=== PATIENT | male | born 1990 | race African-American/Black ===

== ENCOUNTER 2016-09-04 19:36 | Emergency (ER) | payer OTHER ==
[~2016-09-04] VITALS: Ht 175.3 cm; Wt 96.6 kg
[~2016-09-04 19:36] MED LIST: ALBUTEROL SULF8.5 GM IH; GENTAMICIN SULFA5 ML BOTH EYES; LORTAB 5-325 M1 EACH PO; MOTRIN600 MG PO; MOTRIN800 MG PO; NAPROSYN500 MG PO; NOHOMEMEDS; NORCO 5/3251 TABLET PO; NORCO 7.5/321 TABLET PO; PROVENTIL17 G1 IH; PYRIDIUM100 MG PO; ZITHROMAX Z-PA250 MG PO; no home meds
[2016-09-04] MEDS ORDERED: KEFLEX500 MG PO (20:44)
[2016-09-04 20:56] VITALS: BP 121/88
== END 2016-09-04 20:57 | disposition home or self-care (01) ==
LOC: EME 19:36 → RME 19:36
PROC: 0HCNXZZ Extirpation of Matter from Left Foot Skin, External Approach (ICD-10-PCS; principal; 2016-09-04)
DX: S90.852A Superficial foreign body, left foot, initial encounter (principal); W45.8XXA Other foreign body or object entering through skin, initial encounter
CPT/HCPCS: 73630; 99281; 99284; S0020

== ENCOUNTER 2016-10-11 18:58 | Emergency (ER) | payer OTHER ==
[~2016-10-11] VITALS: Ht 175.3 cm; Wt 92.2 kg
[~2016-10-11 18:58] MED LIST changes: +KEFLEX500 MG PO
[2016-10-11] MEDS ORDERED: AUGMENTIN875 MG PO (22:25)
[2016-10-11 22:40] VITALS: BP 122/75
== END 2016-10-11 22:41 | disposition home or self-care (01) ==
LOC: EME 18:58
PROC: 0CQ1XZZ Repair Lower Lip, External Approach (ICD-10-PCS; principal; 2016-10-11)
DX: S01.511A Laceration without foreign body of lip, initial encounter (principal); Y08.09XA Assault by strike by other specified type of sport equipment, initial encounter; F17.200 Nicotine dependence, unspecified, uncomplicated
CPT/HCPCS: 99281; 99284

== ENCOUNTER 2016-10-15 21:37 | Emergency (ER) | payer OTHER ==
[~2016-10-15 21:37] MED LIST changes: +AUGMENTIN875 MG PO
[2016-10-15 22:01] LABS: EOSINOPHIL (%) 2.9 % (0-5); EOSINOPHIL COUNT 0.2 K/uL (0-0.3); HEMATOCRIT 41.4 % (38.0-50.0); IMMATURE GRANULOCYTE (%) 0.2 % (0.0-0.7); INSTRUMENT ABS NEUTROPHIL CT 3.3 K/uL; LYMPHOCYTE COUNT 2.1 K/uL (1.0-2.8); MCH 30.9 PG (29.0-34.0); MCHC 34.5 G/DL (30.0-36.0); MCV 89.4 FL (86-99); MEAN PLAT.VOLUME 8.9 uM^3 (9.0-12.4); MONOCYTE (%) 9.6 % (3-12); MONOCYTE COUNT 0.6 K/uL (0-0.8); NEUTROPHIL COUNT 3.3 K/uL (1.8-6.4); PLATELET COUNT 290 K/uL (156-360); RBC DIS.WIDTH-CV 12.1 % (11.8-14.6); RBC DIS.WIDTH-SD 39.8 % (39-53); RED BLOOD COUNT 4.63 M/uL (4.00-5.50); WHITE BLOOD COUNT 6.1 K/uL (4.1-10.2)
[2016-10-15 22:12] LABS: AMYLASE 115 IU/L (1-118); CHLORIDE 104 mEq/L (99-109); POTASSIUM 3.2 mEq/L (3.7-5.4); SODIUM 140 mEq/L (136-147)
[2016-10-15 22:14] LABS: GLUCOSE 118 mg/dL (70-99)
[2016-10-15 22:15] LABS: ANION GAP 16 MEQ/L (2-14)
[2016-10-15 22:17] LABS: SERUM ETHYL ALCOHOL 173 mg/dL
[2016-10-15 22:18] LABS: GFR ESTIMATE (CALCULATED) > 59 mL/min/
[2016-10-15 22:19] LABS: UREA NITROGEN (BUN) 16 mg/dL (9-23)
[2016-10-15 22:21] LABS: LIPASE 53 U/L (1.0-51.0)
[2016-10-15 23:28] LABS: ADD MIUA? YES; BILIRUBIN NEGATIVE; BLOOD NEGATIVE; COLOR STRAW ((YELLOW)); GLUCOSE (STRIP) NEGATIVE; KETONES NEGATIVE; LEUKOCYTES NEGATIVE; NITRITE NEGATIVE; PROTEIN (STRIP) NEGATIVE; SPECIFIC GRAVITY 1.039 (1.000-1.030); UROBILINOGEN 0.2 MG/DL (0.2-1.0)
[2016-10-15 23:35] LABS: BACTERIA NONE SEEN /HPF; EPITHELIAL CELLS RARE /HPF; HYALINE CASTS 0-5 /LPF; MUCUS NONE SEEN /LPF; RED BLOOD CELLS NONE SEEN /HPF (0-5); UCUL ADDED? NO; WHITE BLOOD CELLS 0-5 /HPF (0-5)
[2016-10-15 23:41] LABS: ADD MEDTOX COMMENT Y; AMPHETAMINE NEGATIVE (500 ng/mL); BARBITURATES NEGATIVE (200 ng/mL); BENZODIAZEPINES NEGATIVE (150 ng/mL); COCAINE NEGATIVE (150 ng/mL); INTERNAL CONTROLS VALID? YES; METHADONE NEGATIVE (200 ng/mL); METHAMPHETAMINE NEGATIVE (500 ng/mL); OPIATES (MORPHINE) PRESUMPTIVE POSITIVE (100 ng/mL); OXYCODONE PRESUMPTIVE POSITIVE (100 ng/mL); PHENCYCLIDINE NEGATIVE (25 ng/mL); PROPOXYPHENE NEGATIVE (300 ng/mL); THC CANNABINOIDS PRESUMPTIVE POSITIVE (50 ng/mL); TRICYCLIC ANTIDEPRESSANTS NEGATIVE (300 ng/mL)
[2016-10-16] MEDS ORDERED: PERCOCET 10/1 TABLET PO (00:08)
[2016-10-16] MEDS ORDERED: MOTRIN800 MG PO (00:08)
[2016-10-16] MEDS ORDERED: KEFLEX500 MG PO (00:09)
== END 2016-10-16 00:59 | disposition home or self-care (01) ==
LOC: TRA 21:37
PROVIDERS: Emergency Medicine
PROC: 0HQ6XZZ Repair Back Skin, External Approach (ICD-10-PCS; principal; 2016-10-15)
DX: S31.010A Laceration without foreign body of lower back and pelvis without penetration into retroperitoneum, initial encounter (principal); S05.12XA Contusion of eyeball and orbital tissues, left eye, initial encounter; X99.9XXA Assault by unspecified sharp object, initial encounter; R41.82 Altered mental status, unspecified; Y90.6 Blood alcohol level of 120-199 mg/100 ml
CPT/HCPCS: 70450; 70486; 71260; 72125; 72129; 72132; 74177; 80048; 81003; 82150; 83690; 84999; 85025; 86900; 86901; 99281; 99285; G0480; J0690; J2270; J2405

== ENCOUNTER 2016-12-15 19:35 | Emergency (ER) | payer OTHER ==
[~2016-12-15] VITALS: Ht 175.3 cm; Wt 96.0 kg
[~2016-12-15 19:35] MED LIST changes: +PERCOCET 10/1 TABLET PO
[2016-12-15 19:54] VITALS: BP 98/74
[2016-12-16] MEDS ORDERED: PERCOCET 5/31 TABLET PO (21:03)
== END 2016-12-15 21:09 | disposition left against medical advice (07) ==
LOC: EME 19:35
DX: S62.326A Displaced fracture of shaft of fifth metacarpal bone, right hand, initial encounter for closed fracture (principal); W22.09XA Striking against other stationary object, initial encounter; Z53.21 Procedure and treatment not carried out due to patient leaving prior to being seen by health care provider
CPT/HCPCS: 73130

== ENCOUNTER 2016-12-16 20:38 | Emergency (ER) | payer OTHER ==
[2016-12-16] MEDS ORDERED: PERCOCET 5/31 TABLET PO (21:03)
[2016-12-16 21:18] VITALS: BP 123/73
== END 2016-12-16 21:25 | disposition home or self-care (01) ==
LOC: EXP 20:38 → EME 20:38 → EXP 21:25
PROC: 2W3EX1Z Immobilization of Right Hand using Splint (ICD-10-PCS; principal; 2016-12-16)
DX: S62.306D Unspecified fracture of fifth metacarpal bone, right hand, subsequent encounter for fracture with routine healing (principal); W22.09XD Striking against other stationary object, subsequent encounter
CPT/HCPCS: 99281; 99284

== ENCOUNTER 2017-05-01 07:16 | Emergency (ER) | payer OTHER ==
[~2017-05-01] VITALS: Ht 175.3 cm; Wt 92.5 kg
[~2017-05-01 07:16] MED LIST changes: +PERCOCET 5/31 TABLET PO
[2017-05-01 07:58] LABS: HEMATOCRIT 40.1 % (38.0-50.0); HEMOGLOBIN 14.6 G/DL (12.5-16.6); MCH 33.6 PG (29.0-34.0); MCHC 36.4 G/DL (30.0-36.0); MCV 92.2 FL (86-99); PLATELET COUNT 306 K/uL (156-360); RBC DIS.WIDTH-CV 11.9 % (11.8-14.6); RED BLOOD COUNT 4.35 M/uL (4.00-5.50); WHITE BLOOD COUNT 8.2 K/uL (4.1-10.2)
[2017-05-01 08:08] LABS: ALBUMIN 3.7 g/dL (3.2-4.8)
[2017-05-01 08:09] LABS: CHLORIDE 101 mEq/L (99-109); POTASSIUM 3.6 mEq/L (3.7-5.4); SODIUM 136 mEq/L (136-147)
[2017-05-01 08:11] LABS: GLUCOSE 130 mg/dL (70-99); TOTAL PROTEIN 7.4 g/dL (6.4-8.3)
[2017-05-01 08:13] LABS: TOTAL BILIRUBIN 0.4 mg/dL (0.0-1.0)
[2017-05-01 08:14] LABS: ALKALINE PHOSPHATASE 63 IU/L (3-129); SERUM ETHYL ALCOHOL 205 mg/dL
[2017-05-01 08:15] LABS: CREATININE 1.2 mg/dL (0.6-1.3); GFR ESTIMATE (CALCULATED) > 59 mL/min/ (58.99-99999)
[2017-05-01 08:16] LABS: AST (GOT) 123 IU/L (2-34); UREA NITROGEN (BUN) 19 mg/dL (9-23)
[2017-05-01 08:18] LABS: ALT (GPT) 50 IU/L (3-49); LIPASE 528 U/L (1.0-51.0)
[2017-05-01 10:06] LABS: APPEARANCE CLEAR ((CLEAR)); BILIRUBIN NEGATIVE; BLOOD NEGATIVE; COLOR YELLOW ((YELLOW)); GLUCOSE (STRIP) NEGATIVE; KETONES 5; LEUKOCYTES NEGATIVE; NITRITE NEGATIVE; PROTEIN (STRIP) 30; UCUL ADDED? NO; UROBILINOGEN 0.2 MG/DL (0.2-1.0)
[2017-05-01] MEDS ORDERED: FLEXERIL10 MG PO (14:08)
[2017-05-01] MEDS ORDERED: LIBRIUM25 MG PO (14:08)
[2017-05-01] MEDS ORDERED: TRAMADOL HCL50 MG PO (14:08)
[2017-05-01] MEDS ORDERED: TORADOL10 MG PO (14:08)
[2017-05-01] MEDS ORDERED: ZOFRAN ODT4 MG PO (14:08)
[2017-05-01 14:24] VITALS: BP 120/85
== END 2017-05-01 14:46 | disposition home or self-care (01) ==
LOC: EME 07:16
PROVIDERS: Nurse Practitioner Family
DX: J10.2 Influenza due to other identified influenza virus with gastrointestinal manifestations (principal); R74.8 Abnormal levels of other serum enzymes; F10.20 Alcohol dependence, uncomplicated; R79.89 Other specified abnormal findings of blood chemistry; Y90.7 Blood alcohol level of 200-239 mg/100 ml
CPT/HCPCS: 80053; 81003; 83690; 85027; 87502; 90832; 99281; 99285; G0480; J1885; J3010; J7030

== ENCOUNTER 2017-05-01 18:00 | Inpatient (IN) | payer OTHER ==
[~2017-05-01] VITALS: Ht 175.3 cm; Wt 108.7 kg
[~2017-05-01 18:00] MED LIST changes: +FLEXERIL10 MG PO; +LIBRIUM25 MG PO; +TORADOL10 MG PO; +TRAMADOL HCL50 MG PO; +ZOFRAN ODT4 MG PO
[2017-05-01 23:40] LABS: CHLORIDE 103 mEq/L (99-109); SODIUM 134 mEq/L (136-147)
[2017-05-01 23:41] LABS: GLUCOSE 122 mg/dL (70-99)
[2017-05-01 23:45] LABS: CREATININE 0.9 mg/dL (0.6-1.3); GFR ESTIMATE (CALCULATED) > 59 mL/min/ (58.99-99999)
[2017-05-01 23:46] LABS: UREA NITROGEN (BUN) 15 mg/dL (9-23)
[2017-05-01 23:49] LABS: POTASSIUM 4.7 mEq/L (3.7-5.4)
[2017-05-02 00:04] VITALS: BP 147/94
[2017-05-02 06:21] LABS: HEMATOCRIT 46.9 % (38.0-50.0); MCH 32.7 PG (29.0-34.0); MCHC 35.4 G/DL (30.0-36.0); MCV 92.5 FL (86-99); PLATELET COUNT 226 K/uL (156-360); RBC DIS.WIDTH-CV 12.2 % (11.8-14.6); RBC DIS.WIDTH-SD 40.9 % (39-53); RED BLOOD COUNT 5.07 M/uL (4.00-5.50); WHITE BLOOD COUNT 9.3 K/uL (4.1-10.2)
[2017-05-02 06:26] LABS: HEMOGLOBIN 16.6 G/DL (12.5-16.6)
[2017-05-02 06:40] LABS: ALBUMIN 3.4 G/DL (3.2-4.8); ALKALINE PHOSPHATASE 50 IU/L (3-129); ALT (GPT) 33 IU/L (3-49); AST (GOT) 76 IU/L (2-34); CHLORIDE 102 MEQ/L (99-109); GFR ESTIMATE (CALCULATED) > 59 mL/min/ (58.99-99999); GLUCOSE 130 mg/dL (70-99); LIPASE 1024 U/L (1.0-51.0); POTASSIUM 4.1 MEQ/L (3.7-5.4); SODIUM 137 MEQ/L (136-147); TOTAL BILIRUBIN 1.1 MG/DL (0.0-1.0); TOTAL PROTEIN 6.3 G/DL (6.4-8.3); UREA NITROGEN (BUN) 17 mg/dL (9-23)
[2017-05-02 07:09] LABS: ABS NEUTROPHIL COUNT 8.8; BAND NEUTROPHILS 58.9 % (0-8.0); EOSINOPHIL ABS CT 0; LYMPHOCYTES 3.6 % (15.0-45.0); METAMYELOCYTES 0.9 %; MONOCYTES 0.9 % (0-9.0); PLAT.SUFFICIENCY ADEQUATE; POIKILOCYTOSIS 1+; SEG.NEUTROPHILS 35.7 % (46.0-76.0)
[2017-05-02 07:15] VITALS: BP 144/100
[2017-05-02 16:16] VITALS: BP 138/90
[2017-05-03 04:54] VITALS: BP 135/78
[2017-05-03 07:38] LABS: ALBUMIN 2.7 G/DL (3.2-4.8); ALKALINE PHOSPHATASE 44 IU/L (3-129); ALT (GPT) 22 IU/L (3-49); AST (GOT) 68 IU/L (2-34); CHLORIDE 104 MEQ/L (99-109); CREATININE 1.1 MG/DL (0.6-1.3); DIRECT BILIRUBIN 0.2 mg/dL (0.0-0.3); GFR ESTIMATE (CALCULATED) > 59 mL/min/ (58.99-99999); GLUCOSE 122 mg/dL (70-99); LIPASE 469 U/L (1.0-51.0); MAGNESIUM 1.7 mg/dl (1.3-2.7); POTASSIUM 4.5 MEQ/L (3.7-5.4); SODIUM 135 MEQ/L (136-147); UREA NITROGEN (BUN) 22 mg/dL (9-23)
[2017-05-03 07:39] LABS: TOTAL PROTEIN 5.1 G/DL (6.4-8.3)
[2017-05-03 08:00] VITALS: BP 129/80
[2017-05-03 09:11] LABS: HEMOGLOBIN 15.9 G/DL (12.5-16.6); MCH 31.7 PG (29.0-34.0); MCHC 33.8 G/DL (30.0-36.0); MCV 93.6 FL (86-99); NRBC (%) 0.2 /100 WBC (0-0); PLATELET COUNT 211 K/uL (156-360); RBC DIS.WIDTH-CV 12.4 % (11.8-14.6); RBC DIS.WIDTH-SD 43.2 % (39-53); RED BLOOD COUNT 5.02 M/uL (4.00-5.50); WHITE BLOOD COUNT 8.4 K/uL (4.1-10.2)
[2017-05-03 09:37] LABS: ABS NEUTROPHIL COUNT 7.3; ATYPICAL LYMPHOCYTE 2.7 %; BAND NEUTROPHILS 43.7 % (0-8.0); BURR CELLS 1+; EOSINOPHIL ABS CT 0; GIANT PLATELETS 1+; LYMPHOCYTES 3.6 % (15.0-45.0); MONOCYTES 7.3 % (0-9.0); PLAT.SUFFICIENCY ADEQUATE; POIKILOCYTOSIS 1+; SEG.NEUTROPHILS 42.7 % (46.0-76.0); TOX.VACUOLIZATION 1+
[2017-05-03 11:41] VITALS: BP 127/71
[2017-05-03 15:47] VITALS: BP 138/105
[2017-05-03 18:54] LABS: APPEARANCE SL.HAZY ((CLEAR)); BILIRUBIN NEGATIVE; BLOOD MODERATE; COLOR AMBER ((YELLOW)); GLUCOSE (STRIP) NEGATIVE; KETONES 20; LEUKOCYTES NEGATIVE; NITRITE NEGATIVE; PROTEIN (STRIP) 100; SPECIFIC GRAVITY 1.028 (1.000-1.030)
[2017-05-03 20:35] LABS: RED BLOOD CELLS 0-5 /HPF (0-5); WHITE BLOOD CELLS 0-5 /HPF (0-5)
[2017-05-03 20:36] LABS: BACTERIA 1+ /HPF; EPITHELIAL CELLS NONE SEEN /HPF; MUCUS 4+ /LPF
[2017-05-03 22:10] VITALS: BP 140/90
[2017-05-04] VITALS (7 sets, daily range): BP systolic 12–144; BP diastolic 68–96
[2017-05-04 01:10] LABS: HEMATOCRIT 41.8 % (38.0-50.0); HEMOGLOBIN 14.7 G/DL (12.5-16.6); MCH 32.7 PG (29.0-34.0); MCHC 35.2 G/DL (30.0-36.0); MCV 92.9 FL (86-99); NRBC (%) 0.4 /100 WBC (0-0); PLATELET COUNT 206 K/uL (156-360); RBC DIS.WIDTH-CV 12.2 % (11.8-14.6)
[2017-05-04 01:19] LABS: ALBUMIN 2.8 g/dL (3.2-4.8); CHLORIDE 99 mEq/L (99-109); POTASSIUM 3.9 mEq/L (3.7-5.4); SODIUM 132 mEq/L (136-147)
[2017-05-04 01:21] LABS: GLUCOSE 108 mg/dL (70-99)
[2017-05-04 01:25] LABS: ALKALINE PHOSPHATASE 46 IU/L (3-129); GFR ESTIMATE (CALCULATED) > 59 mL/min/ (58.99-99999)
[2017-05-04 01:26] LABS: DIRECT BILIRUBIN 0.5 mg/dL (0.0-0.3); UREA NITROGEN (BUN) 19 mg/dL (9-23)
[2017-05-04 01:28] LABS: ALT (GPT) 24 IU/L (3-49); AST (GOT) 67 IU/L (2-34); LIPASE 289 U/L (1.0-51.0); TOTAL BILIRUBIN 0.9 mg/dL (0.0-1.0)
[2017-05-04 01:51] LABS: ABS NEUTROPHIL COUNT 4.7; EOSINOPHIL ABS CT 0
[2017-05-04 01:54] LABS: TROP-I INTERPRETATION NEGATIVE; TROPONIN-I < 0.01 ng/mL (0.0-0.30)
[2017-05-04 03:22] LABS: BASE EXCESS -0.4 mEq/L (-3 to +3); BICARBONATE 24.1 mEq/L (22-26); CARBOXY HGB 2.6 % (0-5); METHEMOGLOBIN 1.4 % (0-1.5); PCO2 38 mm Hg (35-45); PO2 63 mm Hg (80-100); pH 7.41 (7.35-7.45)
[2017-05-04 03:23] LABS: COMMENTS - BLOOD GASES A+C+; FI02 21 %; SITE RR
[2017-05-04 06:19] LABS: HEMATOCRIT 37.8 % (38.0-50.0); HEMOGLOBIN 12.8 G/DL (12.5-16.6); MCH 31.8 PG (29.0-34.0); MCHC 33.9 G/DL (30.0-36.0); PLATELET COUNT 202 K/uL (156-360); RBC DIS.WIDTH-CV 12.3 % (11.8-14.6); RBC DIS.WIDTH-SD 42.9 % (39-53); RED BLOOD COUNT 4.02 M/uL (4.00-5.50); WHITE BLOOD COUNT 7.5 K/uL (4.1-10.2)
[2017-05-04 06:39] LABS: ALBUMIN 2.6 G/DL (3.2-4.8); ALKALINE PHOSPHATASE 39 IU/L (3-129); ALT (GPT) 16 IU/L (3-49); AST (GOT) 41 IU/L (2-34); CHLORIDE 99 MEQ/L (99-109); GFR ESTIMATE (CALCULATED) > 59 mL/min/ (58.99-99999); GLUCOSE 98 mg/dL (70-99); POTASSIUM 3.7 MEQ/L (3.7-5.4); SODIUM 134 MEQ/L (136-147); TOTAL BILIRUBIN 0.9 MG/DL (0.0-1.0); TOTAL PROTEIN 5.3 G/DL (6.4-8.3); UREA NITROGEN (BUN) 19 mg/dL (9-23)
[2017-05-04 07:03] LABS: ABS NEUTROPHIL COUNT 5.8; ANISOCYTOSIS 1+; ATYPICAL LYMPHOCYTE 2.7 %; BAND NEUTROPHILS 19.8 % (0-8.0); BASOPHILS 0.9 %; EOSINOPHIL ABS CT 0.1; EOSINOPHILS 1.8 % (0-5.0); LYMPHOCYTES 9.9 % (15.0-45.0); MONOCYTES 7.2 % (0-9.0); PLAT.SUFFICIENCY ADEQUATE; SEG.NEUTROPHILS 57.7 % (46.0-76.0)
[2017-05-04 19:57] LABS: C DIFF TOXIN NEGATIVE (NEGATIVE)
[2017-05-05 03:26] VITALS: BP 134/98
[2017-05-05 05:05] LABS: ALBUMIN 2.6 g/dL (3.2-4.8)
[2017-05-05 05:06] LABS: CHLORIDE 98 mEq/L (99-109); POTASSIUM 3.3 mEq/L (3.7-5.4); SODIUM 132 mEq/L (136-147)
[2017-05-05 05:08] LABS: GLUCOSE 92 mg/dL (70-99); TOTAL PROTEIN 5.1 g/dL (6.4-8.3)
[2017-05-05 05:11] LABS: ALKALINE PHOSPHATASE 36 IU/L (3-129); CREATININE 0.7 mg/dL (0.6-1.3); GFR ESTIMATE (CALCULATED) > 59 mL/min/ (58.99-99999)
[2017-05-05 05:13] LABS: AST (GOT) 61 IU/L (2-34); UREA NITROGEN (BUN) 11 mg/dL (9-23)
[2017-05-05 05:14] LABS: ALT (GPT) 26 IU/L (3-49)
[2017-05-05 05:15] LABS: LIPASE 180 U/L (1.0-51.0)
[2017-05-05 05:21] LABS: TOTAL BILIRUBIN 0.7 mg/dL (0.0-1.0)
[2017-05-05 05:30] LABS: HEMATOCRIT 32.7 % (38.0-50.0); HEMOGLOBIN 11.6 G/DL (12.5-16.6); MCH 33.1 PG (29.0-34.0); MCHC 35.5 G/DL (30.0-36.0); MCV 93.4 FL (86-99); NRBC (%) 1.2 /100 WBC (0-0); RBC DIS.WIDTH-CV 12.1 % (11.8-14.6); RBC DIS.WIDTH-SD 41.6 % (39-53); WHITE BLOOD COUNT 8.9 K/uL (4.1-10.2)
[2017-05-05 06:13] LABS: ABS NEUTROPHIL COUNT 6.2; ANISOCYTOSIS 1+; ATYPICAL LYMPHOCYTE 0.9 %; BAND NEUTROPHILS 28.3 % (0-8.0); EOSINOPHIL ABS CT 0; LYMPHOCYTES 7.1 % (15.0-45.0); METAMYELOCYTES 4.4 %; MONOCYTES 14.2 % (0-9.0); MYELOCYTES 3.5 %; NUCLEATED RBC'S 1.8; PLAT.SUFFICIENCY ADEQUATE; PLATELET CLUMPS PRESENT - PLATELET COUNT APPEARS ADQ.; SEG.NEUTROPHILS 41.6 % (46.0-76.0); SMUDGE CELLS 14.2
[2017-05-05 08:20] VITALS: BP 143/95
[2017-05-05 12:28] VITALS: BP 145/94
[2017-05-05 16:35] VITALS: BP 144/90
[2017-05-05 20:08] VITALS: BP 152/94
[2017-05-05 23:43] VITALS: BP 150/96
[2017-05-06 05:19] LABS: HEMATOCRIT 32.9 % (38.0-50.0); HEMOGLOBIN 11.3 G/DL (12.5-16.6); MCH 32.2 PG (29.0-34.0); MCHC 34.3 G/DL (30.0-36.0); MCV 93.7 FL (86-99); NRBC (%) 1.6 /100 WBC (0-0); RBC DIS.WIDTH-CV 12.4 % (11.8-14.6); RED BLOOD COUNT 3.51 M/uL (4.00-5.50); WHITE BLOOD COUNT 12.8 K/uL (4.1-10.2)
[2017-05-06 05:46] LABS: ABS NEUTROPHIL COUNT 9.5; EOSINOPHIL ABS CT 0; HEMATOLOGY COMMENT 1 SN; LYMPHOCYTES 8.1 % (15.0-45.0); MACROCYTES 1+; METAMYELOCYTES 4.5 %; MONOCYTES 12.6 % (0-9.0); MYELOCYTES 0.9 %; NUCLEATED RBC'S 2.7; PLAT.SUFFICIENCY ADEQUATE; POLYCHROMASIA 1+; TEAR DROP CELLS 1+
[2017-05-06 05:49] LABS: BAND NEUTROPHILS 4.5 % (0-8.0); PLATELET COUNT UNABLE TO REPORT K/uL (156-360); SEG.NEUTROPHILS 69.4 % (46.0-76.0)
[2017-05-06 05:54] VITALS: BP 146/94
[2017-05-06 06:12] LABS: ALBUMIN 2.6 G/DL (3.2-4.8); ALKALINE PHOSPHATASE 36 IU/L (3-129); CHLORIDE 98 MEQ/L (99-109); CREATININE 0.8 MG/DL (0.6-1.3); DIRECT BILIRUBIN 0.3 mg/dL (0.0-0.3); GFR ESTIMATE (CALCULATED) > 59 mL/min/ (58.99-99999); GLUCOSE 81 mg/dL (70-99); LIPASE 123 U/L (1.0-51.0); PHOSPHORUS 1.4 mg/dL (2.5-4.9); POTASSIUM 3.6 MEQ/L (3.7-5.4); PREALBUMIN 11.2 mg/dL (10-40); SODIUM 136 MEQ/L (136-147); TOTAL PROTEIN 5.1 G/DL (6.4-8.3); TRIGLYCERIDES 79 MG/DL (Normal: <150); UREA NITROGEN (BUN) 7 mg/dL (9-23)
[2017-05-06 06:13] LABS: ALT (GPT) 38 IU/L (3-49); AST (GOT) 74 IU/L (2-34); MAGNESIUM 2.3 mg/dl (1.3-2.7); TOTAL BILIRUBIN 0.7 MG/DL (0.0-1.0)
[2017-05-06 08:45] VITALS: BP 142/89
[2017-05-06 12:00] VITALS: BP 142/90
[2017-05-06 15:50] VITALS: BP 140/84
[2017-05-06 20:00] VITALS: BP 162/96
[2017-05-07] VITALS (7 sets, daily range): BP systolic 134–169; BP diastolic 75–100
[2017-05-07 09:23] LABS: HEMATOCRIT 34.7 % (38.0-50.0); HEMOGLOBIN 11.7 G/DL (12.5-16.6); MCHC 33.7 G/DL (30.0-36.0); MCV 94.8 FL (86-99); NRBC (%) 1.2 /100 WBC (0-0); PLATELET COUNT 242 K/uL (156-360); RBC DIS.WIDTH-CV 12.9 % (11.8-14.6); RED BLOOD COUNT 3.66 M/uL (4.00-5.50); WHITE BLOOD COUNT 13.8 K/uL (4.1-10.2)
[2017-05-07 09:49] LABS: ABS NEUTROPHIL COUNT 11.5; BAND NEUTROPHILS 2.7 % (0-8.0); EOSINOPHIL ABS CT 0; LYMPHOCYTES 6.2 % (15.0-45.0); METAMYELOCYTES 0.9 %; MONOCYTES 9.8 % (0-9.0); NUCLEATED RBC'S 1.8; PLAT.SUFFICIENCY ADEQUATE; SEG.NEUTROPHILS 80.4 % (46.0-76.0); SMUDGE CELLS 12.5
[2017-05-07 09:51] LABS: ALBUMIN 2.8 G/DL (3.2-4.8); ALKALINE PHOSPHATASE 51 IU/L (3-129); ALT (GPT) 59 IU/L (3-49); AST (GOT) 100 IU/L (2-34); CHLORIDE 103 MEQ/L (99-109); CREATININE 0.7 MG/DL (0.6-1.3); GFR ESTIMATE (CALCULATED) > 59 mL/min/ (58.99-99999); MAGNESIUM 2.3 mg/dl (1.3-2.7); PHOSPHORUS 1.5 mg/dL (2.5-4.9); POTASSIUM 3.6 MEQ/L (3.7-5.4); SODIUM 135 MEQ/L (136-147); TOTAL BILIRUBIN 0.8 MG/DL (0.0-1.0); TOTAL PROTEIN 5.4 G/DL (6.4-8.3); UREA NITROGEN (BUN) 7 mg/dL (9-23)
[2017-05-07 09:54] LABS: GLUCOSE 141 mg/dL (70-99)
[2017-05-08 04:03] VITALS: BP 136/70
[2017-05-08 05:48] LABS: HEMATOCRIT 32.8 % (38.0-50.0); HEMOGLOBIN 11.2 G/DL (12.5-16.6); MCH 32.3 PG (29.0-34.0); MCHC 34.1 G/DL (30.0-36.0); MCV 94.5 FL (86-99); NRBC (%) 0.7 /100 WBC (0-0); PLATELET COUNT 269 K/uL (156-360); RBC DIS.WIDTH-CV 12.9 % (11.8-14.6); RBC DIS.WIDTH-SD 44.7 % (39-53); RED BLOOD COUNT 3.47 M/uL (4.00-5.50); WHITE BLOOD COUNT 12.4 K/uL (4.1-10.2)
[2017-05-08 06:08] LABS: ALBUMIN 2.7 G/DL (3.2-4.8); ALKALINE PHOSPHATASE 62 IU/L (3-129); ALT (GPT) 87 IU/L (3-49); AST (GOT) 131 IU/L (2-34); CHLORIDE 103 MEQ/L (99-109); CREATININE 0.7 MG/DL (0.6-1.3); GFR ESTIMATE (CALCULATED) > 59 mL/min/ (58.99-99999); GLUCOSE 133 mg/dL (70-99); MAGNESIUM 2.1 mg/dl (1.3-2.7); POTASSIUM 3.8 MEQ/L (3.7-5.4); SODIUM 135 MEQ/L (136-147); TOTAL BILIRUBIN 0.7 MG/DL (0.0-1.0); TOTAL PROTEIN 5.3 G/DL (6.4-8.3); UREA NITROGEN (BUN) 7 mg/dL (9-23)
[2017-05-08 06:09] LABS: PHOSPHORUS 2.2 mg/dL (2.5-4.9)
[2017-05-08 06:58] LABS: BASOPHIL (%) 0.4 % (0-1); BASOPHIL COUNT 0.1 K/uL (0-0.1); EOSINOPHIL (%) 0.2 % (0-5); IMMATURE GRANULOCYTE (%) 3.4 % (0.0-0.7); LYMPHOCYTE (%) 9.9 % (15-42); LYMPHOCYTE COUNT 1.2 K/uL (1.0-2.8); MONOCYTE COUNT 1.7 K/uL (0-0.8); NEUTROPHIL (%) 72.1 % (45-76); NEUTROPHIL COUNT 8.9 K/uL (1.8-6.4)
[2017-05-08 07:12] VITALS: BP 135/73
[2017-05-08 12:24] VITALS: BP 145/92
[2017-05-08 16:36] VITALS: BP 137/83
[2017-05-08 20:20] VITALS: BP 147/81
[2017-05-08 23:52] VITALS: BP 137/86
[2017-05-09 03:29] VITALS: BP 125/76
[2017-05-09 07:09] LABS: HEMATOCRIT 31.6 % (38.0-50.0); HEMOGLOBIN 10.7 G/DL (12.5-16.6); MCH 31.8 PG (29.0-34.0); MCHC 33.9 G/DL (30.0-36.0); MCV 93.8 FL (86-99); NRBC (%) 0.5 /100 WBC (0-0); PLATELET COUNT 326 K/uL (156-360); RBC DIS.WIDTH-CV 12.8 % (11.8-14.6); RBC DIS.WIDTH-SD 44.6 % (39-53); RED BLOOD COUNT 3.37 M/uL (4.00-5.50); WHITE BLOOD COUNT 11.2 K/uL (4.1-10.2)
[2017-05-09 07:35] LABS: ALBUMIN 2.6 G/DL (3.2-4.8); ALKALINE PHOSPHATASE 55 IU/L (3-129); ALT (GPT) 97 IU/L (3-49); AST (GOT) 111 IU/L (2-34); CHLORIDE 104 MEQ/L (99-109); CREATININE 0.7 MG/DL (0.6-1.3); GFR ESTIMATE (CALCULATED) > 59 mL/min/ (58.99-99999); GLUCOSE 130 mg/dL (70-99); POTASSIUM 4.3 MEQ/L (3.7-5.4); SODIUM 133 MEQ/L (136-147); TOTAL BILIRUBIN 0.7 MG/DL (0.0-1.0); TOTAL PROTEIN 5.5 G/DL (6.4-8.3); UREA NITROGEN (BUN) 8 mg/dL (9-23)
[2017-05-09 07:36] LABS: CHLORIDE 104 MEQ/L (99-109); CREATININE 0.7 MG/DL (0.6-1.3); GFR ESTIMATE (CALCULATED) > 59 mL/min/ (58.99-99999); GLUCOSE 128 mg/dL (70-99); PHOSPHORUS 2.3 mg/dL (2.5-4.9); POTASSIUM 4.4 MEQ/L (3.7-5.4); SODIUM 133 MEQ/L (136-147); UREA NITROGEN (BUN) 8 mg/dL (9-23)
[2017-05-09 08:00] VITALS: BP 134/78
[2017-05-09 08:16] LABS: ABS NEUTROPHIL COUNT 7.1; ANISOCYTOSIS 1+; EOSINOPHIL ABS CT 0.2; MACROCYTES 1+
[2017-05-09 11:29] VITALS: BP 139/68
[2017-05-09 16:00] VITALS: BP 143/67
== END 2017-05-09 21:35 | disposition short-term general hospital (02) | DRG 439 ==
LOC: EME 18:00 → 5EAST 22:53 → EDOF 22:53 → ENRESERV 22:55 → 5EAST 05-02 00:05 → ENRESERV 05-03 21:14 → 4EAST 05-03 22:24 → ENRESERV 05-08 14:25 → CANRESERV 05-08 17:20 → 4EAST 05-09 21:35
PROVIDERS: Hospitalist; Internal Medicine; Internal Medicine Gastroenterology; Physician Assistant; Student in an Organized Health Care Education/Training Program
PROC: 3E0436Z Introduction of Nutritional Substance into Central Vein, Percutaneous Approach (ICD-10-PCS; principal; 2017-05-06)
DX: K85.20 Alcohol induced acute pancreatitis without necrosis or infection (principal); J10.1 Influenza due to other identified influenza virus with other respiratory manifestations; R65.10 Systemic inflammatory response syndrome (SIRS) of non-infectious origin without acute organ dysfunction; E44.0 Moderate protein-calorie malnutrition; J90 Pleural effusion, not elsewhere classified; F17.210 Nicotine dependence, cigarettes, uncomplicated; Y90.7 Blood alcohol level of 200-239 mg/100 ml; F12.90 Cannabis use, unspecified, uncomplicated; K70.11 Alcoholic hepatitis with ascites; E87.6 Hypokalemia; I38 Endocarditis, valve unspecified; F10.239 Alcohol dependence with withdrawal, unspecified; Z68.35 Body mass index [BMI] 35.0-35.9, adult; K86.89 Other specified diseases of pancreas; E83.51 Hypocalcemia; E83.42 Hypomagnesemia; B96.89 Other specified bacterial agents as the cause of diseases classified elsewhere; R19.7 Diarrhea, unspecified; J98.11 Atelectasis; Z81.1 Family history of alcohol abuse and dependence
CPT/HCPCS: 36600; 71010; 71250; 74176; 74177; 76937; 80048; 80053; 80076; 80202; 81003; 82140; 82248; 82803; 82948; 83605; 83690; 83735; 84100; 84134; 84478; 84484; 84540; 84630 90; 85025; 85025 91; 85027; 87040; 87493; 87502; 87801; 90832; 93005; 93306; 99281; 99285; C9113; G0480; J0610; J1170; J1335; J1650; J1885; J2060; J2185; J2270; J2405; J2543; J3010; J3370; J3411; J3475; J7030; J7040; J7050; J7120

== ENCOUNTER 2017-05-20 10:46 | Inpatient (IN) | payer OTHER ==
[~2017-05-20] VITALS: Ht 175.3 cm; Wt 88.5 kg
[2017-05-20 11:08] LABS: HEMATOCRIT 30.9 % (38.0-50.0); HEMOGLOBIN 10.7 G/DL (12.5-16.6); MCH 32.1 PG (29.0-34.0); MCHC 34.6 G/DL (30.0-36.0); MCV 92.8 FL (86-99); RBC DIS.WIDTH-CV 11.7 % (11.8-14.6); RBC DIS.WIDTH-SD 39.1 % (39-53); RED BLOOD COUNT 3.33 M/uL (4.00-5.50); WHITE BLOOD COUNT 10.3 K/uL (4.1-10.2)
[2017-05-20 11:10] LABS: PLATELET COUNT 799 K/uL (156-360)
[2017-05-20 11:16] LABS: ALBUMIN 3.4 g/dL (3.2-4.8); CHLORIDE 100 mEq/L (99-109); POTASSIUM 4.1 mEq/L (3.7-5.4); SODIUM 136 mEq/L (136-147)
[2017-05-20 11:18] LABS: GLUCOSE 120 mg/dL (70-99); TOTAL PROTEIN 7.9 g/dL (6.4-8.3)
[2017-05-20 11:20] LABS: TOTAL BILIRUBIN 0.5 mg/dL (0.0-1.0)
[2017-05-20 11:22] LABS: ALKALINE PHOSPHATASE 71 IU/L (3-129); CREATININE 0.8 mg/dL (0.6-1.3); GFR ESTIMATE (CALCULATED) > 59 mL/min/ (58.99-99999)
[2017-05-20 11:23] LABS: UREA NITROGEN (BUN) 7 mg/dL (9-23)
[2017-05-20 11:24] LABS: AST (GOT) 49 IU/L (2-34)
[2017-05-20 11:25] LABS: ALT (GPT) 38 IU/L (3-49)
[2017-05-20 14:16] LABS: APPEARANCE SL.HAZY ((CLEAR)); BILIRUBIN NEGATIVE; BLOOD NEGATIVE; COLOR AMBER ((YELLOW)); GLUCOSE (STRIP) NEGATIVE; KETONES 80; LEUKOCYTES NEGATIVE; NITRITE NEGATIVE; PROTEIN (STRIP) 100
[2017-05-20 14:52] LABS: BACTERIA NONE SEEN /HPF; EPITHELIAL CELLS NONE SEEN /HPF; MUCUS 4+ /LPF; RED BLOOD CELLS 0-5 /HPF (0-5); UCUL ADDED? NO; WHITE BLOOD CELLS 0-5 /HPF (0-5)
[2017-05-20 15:33] LABS: LIPASE 54 U/L (1.0-51.0)
[2017-05-20] MEDS ORDERED: OXYCODONE HCL10 MG PO (18:28)
[2017-05-20 19:39] LABS: INTER. NORMALIZED RATIO 1.6
[2017-05-20 19:42] LABS: PTT 28.9 SEC (25-37)
[2017-05-20 20:22] LABS: MAGNESIUM 1.7 mg/dL (1.3-2.7)
[2017-05-20 20:27] LABS: PHOSPHORUS 3.2 mg/dL (2.5-4.9); SERUM ETHYL ALCOHOL < 10 mg/dL
[2017-05-20 21:18] LABS: FOLIC ACID (FOLATE) 18.5 NG/ML (5.0-22.0)
[2017-05-21 06:23] LABS: BASOPHIL (%) 0.4 % (0-1); EOSINOPHIL (%) 1.9 % (0-5); EOSINOPHIL COUNT 0.2 K/uL (0-0.3); HEMATOCRIT 27.6 % (38.0-50.0); HEMOGLOBIN 9.2 G/DL (12.5-16.6); IMMATURE GRANULOCYTE (%) 0.8 % (0.0-0.7); LYMPHOCYTE (%) 14.9 % (15-42); LYMPHOCYTE COUNT 1.2 K/uL (1.0-2.8); MCH 31.4 PG (29.0-34.0); MCHC 33.3 G/DL (30.0-36.0); MCV 94.2 FL (86-99); MONOCYTE (%) 11.6 % (3-12); MONOCYTE COUNT 0.9 K/uL (0-0.8); NEUTROPHIL (%) 70.4 % (45-76); NEUTROPHIL COUNT 5.6 K/uL (1.8-6.4); PLATELET COUNT 701 K/uL (156-360); RBC DIS.WIDTH-CV 11.9 % (11.8-14.6); RED BLOOD COUNT 2.93 M/uL (4.00-5.50); WHITE BLOOD COUNT 7.9 K/uL (4.1-10.2)
[2017-05-21 06:31] LABS: ALBUMIN 2.8 g/dL (3.2-4.8); CHLORIDE 105 mEq/L (99-109); POTASSIUM 4.1 mEq/L (3.7-5.4); SODIUM 135 mEq/L (136-147)
[2017-05-21 06:32] LABS: MAGNESIUM 1.7 mg/dL (1.3-2.7)
[2017-05-21 06:34] LABS: GLUCOSE 94 mg/dL (70-99); TOTAL PROTEIN 6.4 g/dL (6.4-8.3)
[2017-05-21 06:36] LABS: TOTAL BILIRUBIN 0.4 mg/dL (0.0-1.0)
[2017-05-21 06:37] LABS: ALKALINE PHOSPHATASE 56 IU/L (3-129); PHOSPHORUS 3.4 mg/dL (2.5-4.9)
[2017-05-21 06:38] LABS: CREATININE 0.7 mg/dL (0.6-1.3); GFR ESTIMATE (CALCULATED) > 59 mL/min/ (58.99-99999)
[2017-05-21 06:39] LABS: AST (GOT) 37 IU/L (2-34); DIRECT BILIRUBIN 0.3 mg/dL (0.0-0.3); UREA NITROGEN (BUN) 6 mg/dL (9-23)
[2017-05-21 06:41] LABS: ALT (GPT) 28 IU/L (3-49)
[2017-05-21 07:29] LABS: TRIGLYCERIDES 101 MG/DL (Normal: <150)
[2017-05-21 08:51] LABS: TYPE OF FLUID PLEURAL
[2017-05-21 09:18] LABS: APPEARANCE YELLOW-CLOUDY; BODY FLUID RBC'S 5000 /MM^3 (0-100); BODY FLUID WBC'S 2970 /MM^3 (0-500)
[2017-05-21 09:31] LABS: BODY FLUID EOSINOPHILS 0 % (0-25); MONONUCLEAR WBC'S 46 %; POLYNUCLEAR WBC'S 54 % (0-25)
[2017-05-21 09:33] LABS: BODY FLUID GLUCOSE 89 MG/DL; BODY FLUID LDH 607 IU/L; BODY FLUID PROTEIN 4.8 G/DL
[2017-05-21 11:40] LABS: HEPATITIS B SURFACE ANTIGEN Nonreactive
[2017-05-21 11:41] LABS: ANTI-HEPATITIS A VIRUS (IGM) Nonreactive; HEPATITIS C ANTIBODY Nonreactive
[2017-05-21 11:42] LABS: ANTI-HEPATITIS B CORE (IGM) Nonreactive; HIV-1/2 AB/AG COMBO Nonreactive
[2017-05-21 17:08] VITALS: BP 119/78
[2017-05-21 20:02] VITALS: BP 128/80
[2017-05-22 00:45] VITALS: BP 123/75
[2017-05-22 05:41] VITALS: BP 123/79
[2017-05-22 07:05] LABS: BASOPHIL (%) 0.4 % (0-1); EOSINOPHIL (%) 2.8 % (0-5); EOSINOPHIL COUNT 0.2 K/uL (0-0.3); HEMOGLOBIN 9.3 G/DL (12.5-16.6); IMMATURE GRANULOCYTE (%) 0.7 % (0.0-0.7); LYMPHOCYTE (%) 19.1 % (15-42); LYMPHOCYTE COUNT 1.4 K/uL (1.0-2.8); MCH 31.4 PG (29.0-34.0); MCHC 33.2 G/DL (30.0-36.0); MCV 94.6 FL (86-99); MONOCYTE (%) 11.1 % (3-12); MONOCYTE COUNT 0.8 K/uL (0-0.8); NEUTROPHIL (%) 65.9 % (45-76); NEUTROPHIL COUNT 4.9 K/uL (1.8-6.4); PLATELET COUNT 725 K/uL (156-360); RBC DIS.WIDTH-CV 11.9 % (11.8-14.6); RED BLOOD COUNT 2.96 M/uL (4.00-5.50); WHITE BLOOD COUNT 7.4 K/uL (4.1-10.2)
[2017-05-22 07:33] LABS: ALBUMIN 2.8 G/DL (3.2-4.8); ALKALINE PHOSPHATASE 57 IU/L (3-129); ALT (GPT) 25 IU/L (3-49); AST (GOT) 33 IU/L (2-34); CHLORIDE 99 MEQ/L (99-109); CREATININE 0.6 MG/DL (0.6-1.3); DIRECT BILIRUBIN 0.2 mg/dL (0.0-0.3); GFR ESTIMATE (CALCULATED) > 59 mL/min/ (58.99-99999); GLUCOSE 89 mg/dL (70-99); LIPASE 41 U/L (1.0-51.0); MAGNESIUM 1.9 mg/dl (1.3-2.7); POTASSIUM 4.2 MEQ/L (3.7-5.4); SODIUM 135 MEQ/L (136-147); TOTAL BILIRUBIN 0.5 MG/DL (0.0-1.0); TOTAL PROTEIN 6.3 G/DL (6.4-8.3); UREA NITROGEN (BUN) 5 mg/dL (9-23)
[2017-05-22 07:45] LABS: PHOSPHORUS 3.7 mg/dL (2.5-4.9)
[2017-05-22 08:53] VITALS: BP 121/74
[2017-05-22 12:05] VITALS: BP 116/56
[2017-05-22 15:17] VITALS: BP 127/79
[2017-05-23 00:30] VITALS: BP 123/75
[2017-05-23 08:00] VITALS: BP 127/66
[2017-05-23 09:17] LABS: CHLORIDE 100 MEQ/L (99-109); CREATININE 0.6 MG/DL (0.6-1.3); GFR ESTIMATE (CALCULATED) > 59 mL/min/ (58.99-99999); GLUCOSE 95 mg/dL (70-99); PHOSPHORUS 4.2 mg/dL (2.5-4.9); POTASSIUM 4.5 MEQ/L (3.7-5.4); SODIUM 136 MEQ/L (136-147); UREA NITROGEN (BUN) 4 mg/dL (9-23)
[2017-05-23 16:18] VITALS: BP 129/82
[2017-05-24 00:38] VITALS: BP 133/82
[2017-05-24 07:17] VITALS: BP 117/77
[2017-05-24 09:02] LABS: CHLORIDE 103 MEQ/L (99-109); CREATININE 0.5 MG/DL (0.6-1.3); GFR ESTIMATE (CALCULATED) > 59 mL/min/ (58.99-99999); GLUCOSE 139 mg/dL (70-99); PHOSPHORUS 3.6 mg/dL (2.5-4.9); POTASSIUM 4.1 MEQ/L (3.7-5.4); SODIUM 136 MEQ/L (136-147); UREA NITROGEN (BUN) 7 mg/dL (9-23)
[2017-05-24 15:07] VITALS: BP 112/63
[2017-05-24 23:36] VITALS: BP 115/80
[2017-05-25 07:16] LABS: CHLORIDE 102 MEQ/L (99-109); CREATININE 0.6 MG/DL (0.6-1.3); GFR ESTIMATE (CALCULATED) > 59 mL/min/ (58.99-99999); GLUCOSE 120 mg/dL (70-99); MAGNESIUM 1.9 mg/dl (1.3-2.7); PHOSPHORUS 4.3 mg/dL (2.5-4.9); POTASSIUM 4.4 MEQ/L (3.7-5.4); SODIUM 137 MEQ/L (136-147); UREA NITROGEN (BUN) 10 mg/dL (9-23)
[2017-05-25 07:28] VITALS: BP 114/61
[2017-05-25 15:18] VITALS: BP 112/66
[2017-05-26 00:20] VITALS: BP 112/78
[2017-05-26 09:27] VITALS: BP 116/72
[2017-05-26 09:39] LABS: BASOPHIL (%) 0.2 % (0-1); EOSINOPHIL (%) 2.4 % (0-5); EOSINOPHIL COUNT 0.2 K/uL (0-0.3); HEMATOCRIT 29.4 % (38.0-50.0); HEMOGLOBIN 9.7 G/DL (12.5-16.6); IMMATURE GRANULOCYTE (%) 0.6 % (0.0-0.7); LYMPHOCYTE (%) 16.5 % (15-42); LYMPHOCYTE COUNT 1.4 K/uL (1.0-2.8); MCH 31.1 PG (29.0-34.0); MCV 94.2 FL (86-99); MONOCYTE (%) 9.8 % (3-12); MONOCYTE COUNT 0.9 K/uL (0-0.8); NEUTROPHIL (%) 70.5 % (45-76); NEUTROPHIL COUNT 6.1 K/uL (1.8-6.4); PLATELET COUNT 570 K/uL (156-360); RBC DIS.WIDTH-CV 12.2 % (11.8-14.6); RBC DIS.WIDTH-SD 41.9 % (39-53); RED BLOOD COUNT 3.12 M/uL (4.00-5.50); WHITE BLOOD COUNT 8.7 K/uL (4.1-10.2)
[2017-05-26 10:47] LABS: ALKALINE PHOSPHATASE 59 IU/L (3-129); ALT (GPT) 21 IU/L (3-49); AST (GOT) 32 IU/L (2-34); CHLORIDE 103 MEQ/L (99-109); CREATININE 0.5 MG/DL (0.6-1.3); DIRECT BILIRUBIN 0.1 mg/dL (0.0-0.3); GFR ESTIMATE (CALCULATED) > 59 mL/min/ (58.99-99999); GLUCOSE 111 mg/dL (70-99); MAGNESIUM 1.9 mg/dl (1.3-2.7); PHOSPHORUS 3.8 mg/dL (2.5-4.9); POTASSIUM 4.7 MEQ/L (3.7-5.4); PREALBUMIN 12.1 mg/dL (10-40); SODIUM 135 MEQ/L (136-147); TOTAL BILIRUBIN 0.3 MG/DL (0.0-1.0); TOTAL PROTEIN 6.6 G/DL (6.4-8.3); TRIGLYCERIDES 120 MG/DL (Normal: <150); UREA NITROGEN (BUN) 11 mg/dL (9-23)
[2017-05-26 15:53] VITALS: BP 109/66
[2017-05-27 00:22] VITALS: BP 110/66
[2017-05-27 08:08] VITALS: BP 104/64
[2017-05-27 09:50] LABS: CHLORIDE 103 MEQ/L (99-109); CREATININE 0.6 MG/DL (0.6-1.3); GFR ESTIMATE (CALCULATED) > 59 mL/min/ (58.99-99999); GLUCOSE 117 mg/dL (70-99); MAGNESIUM 1.9 mg/dl (1.3-2.7); PHOSPHORUS 4.2 mg/dL (2.5-4.9); POTASSIUM 4.3 MEQ/L (3.7-5.4); SODIUM 133 MEQ/L (136-147); UREA NITROGEN (BUN) 12 mg/dL (9-23)
[2017-05-27 13:00] LABS: 24 HR VOLUME 3100 MLS; URINE UREA NITROGEN 16709 MG/24 HR
[2017-05-27 16:59] VITALS: BP 98/56
[2017-05-27 23:44] VITALS: BP 107/58
[2017-05-28 08:01] VITALS: BP 102/61
[2017-05-28 16:38] VITALS: BP 105/61
[2017-05-28 23:48] VITALS: BP 115/63
[2017-05-29 07:30] VITALS: BP 129/79
[2017-05-29 15:10] VITALS: BP 119/56
[2017-05-30 07:31] VITALS: BP 107/52
[2017-05-30 10:17] LABS: CHLORIDE 106 MEQ/L (99-109); CREATININE 0.5 MG/DL (0.6-1.3); GFR ESTIMATE (CALCULATED) > 59 mL/min/ (58.99-99999); GLUCOSE 86 mg/dL (70-99); MAGNESIUM 1.9 mg/dl (1.3-2.7); PHOSPHORUS 3.6 mg/dL (2.5-4.9); POTASSIUM 4.9 MEQ/L (3.7-5.4); SODIUM 137 MEQ/L (136-147); UREA NITROGEN (BUN) 19 mg/dL (9-23)
[2017-05-30 23:32] VITALS: BP 121/67
[2017-05-31 07:14] LABS: CHLORIDE 105 MEQ/L (99-109); CREATININE 0.5 MG/DL (0.6-1.3); GFR ESTIMATE (CALCULATED) > 59 mL/min/ (58.99-99999); GLUCOSE 128 mg/dL (70-99); MAGNESIUM 1.7 mg/dl (1.3-2.7); POTASSIUM 4.1 MEQ/L (3.7-5.4); SODIUM 137 MEQ/L (136-147); UREA NITROGEN (BUN) 16 mg/dL (9-23)
[2017-05-31 07:51] VITALS: BP 105/64
[2017-05-31 16:00] VITALS: BP 143/73
[2017-05-31 23:47] VITALS: BP 105/63
[2017-06-01 07:33] VITALS: BP 106/52
[2017-06-01 10:30] LABS: CHLORIDE 101 MEQ/L (99-109); CREATININE 0.6 MG/DL (0.6-1.3); GFR ESTIMATE (CALCULATED) > 59 mL/min/ (58.99-99999); GLUCOSE 110 mg/dL (70-99); MAGNESIUM 1.8 mg/dl (1.3-2.7); PHOSPHORUS 4.6 mg/dL (2.5-4.9); POTASSIUM 4.2 MEQ/L (3.7-5.4); SODIUM 134 MEQ/L (136-147); UREA NITROGEN (BUN) 12 mg/dL (9-23)
[2017-06-01 17:02] VITALS: BP 93/55
[2017-06-02 00:40] VITALS: BP 117/71
[2017-06-02 08:00] VITALS: BP 126/71
[2017-06-02 08:18] LABS: BASOPHIL (%) 0.5 % (0-1); EOSINOPHIL (%) 3.2 % (0-5); EOSINOPHIL COUNT 0.2 K/uL (0-0.3); HEMATOCRIT 28.9 % (38.0-50.0); HEMOGLOBIN 9.3 G/DL (12.5-16.6); IMMATURE GRANULOCYTE (%) 0.2 % (0.0-0.7); LYMPHOCYTE (%) 24.2 % (15-42); LYMPHOCYTE COUNT 1.4 K/uL (1.0-2.8); MCH 29.8 PG (29.0-34.0); MCHC 32.2 G/DL (30.0-36.0); MCV 92.6 FL (86-99); MONOCYTE (%) 12.9 % (3-12); MONOCYTE COUNT 0.7 K/uL (0-0.8); NEUTROPHIL COUNT 3.3 K/uL (1.8-6.4); PLATELET COUNT 507 K/uL (156-360); RBC DIS.WIDTH-CV 12.4 % (11.8-14.6); RBC DIS.WIDTH-SD 42.2 % (39-53); RED BLOOD COUNT 3.12 M/uL (4.00-5.50); WHITE BLOOD COUNT 5.7 K/uL (4.1-10.2)
[2017-06-02 09:20] LABS: ALBUMIN 3.1 G/DL (3.2-4.8); ALKALINE PHOSPHATASE 78 IU/L (3-129); ALT (GPT) 34 IU/L (3-49); AST (GOT) 28 IU/L (2-34); CHLORIDE 104 MEQ/L (99-109); CREATININE 0.6 MG/DL (0.6-1.3); DIRECT BILIRUBIN 0.1 mg/dL (0.0-0.3); GFR ESTIMATE (CALCULATED) > 59 mL/min/ (58.99-99999); GLUCOSE 111 mg/dL (70-99); MAGNESIUM 1.9 mg/dl (1.3-2.7); PHOSPHORUS 4.2 mg/dL (2.5-4.9); PREALBUMIN 18.2 mg/dL (10-40); SODIUM 137 MEQ/L (136-147); TOTAL PROTEIN 6.5 G/DL (6.4-8.3); TRIGLYCERIDES 89 MG/DL (Normal: <150); UREA NITROGEN (BUN) 15 mg/dL (9-23)
[2017-06-02 09:21] LABS: TOTAL BILIRUBIN 0.2 MG/DL (0.0-1.0)
[2017-06-03 07:33] VITALS: BP 119/79
[2017-06-03] MEDS ORDERED: ZOFRAN4 MG PO (10:32)
[2017-06-03] MEDS ORDERED: ULTRACET1 TABLET PO (10:32)
[2017-06-03] MEDS ORDERED: PERCOCET 5/31 TABLET PO (16:38)
== END 2017-06-03 18:24 | disposition home or self-care (01) | DRG 439 ==
LOC: EME 10:46 → EDOF 18:05 → 5SOUTH 18:05 → CANRESERV 18:09 → ENRESERV 18:09 → EDOF 05-21 14:53 → 4EAST 05-21 16:08 → ENRESERV 05-22 12:47 → 5SOUTH 05-22 14:40
PROVIDERS: Internal Medicine; Physician Assistant; Radiology Diagnostic Radiology
PROC: 0W9B3ZZ Drainage of Left Pleural Cavity, Percutaneous Approach (ICD-10-PCS; principal; 2017-05-21)
PROC: 3E0436Z Introduction of Nutritional Substance into Central Vein, Percutaneous Approach (ICD-10-PCS; principal; 2017-05-21)
DX: K85.21 Alcohol induced acute pancreatitis with uninfected necrosis (principal); E46 Unspecified protein-calorie malnutrition; K86.0 Alcohol-induced chronic pancreatitis; J90 Pleural effusion, not elsewhere classified; J98.11 Atelectasis; Z76.5 Malingerer [conscious simulation]; F12.10 Cannabis abuse, uncomplicated; K86.3 Pseudocyst of pancreas; F11.20 Opioid dependence, uncomplicated; K59.00 Constipation, unspecified; Z81.1 Family history of alcohol abuse and dependence; F17.210 Nicotine dependence, cigarettes, uncomplicated; Z68.28 Body mass index [BMI] 28.0-28.9, adult
CPT/HCPCS: 71046; 74177; 76942; 80048; 80053; 80074; 80076; 80306 90; 81003; 81050; 82140; 82248; 82607; 82746; 82945; 83605; 83615 91; 83690; 83735; 84100; 84134; 84157; 84425 90; 84478; 84540; 84630 90; 85025; 85027; 85610; 85730; 87040; 87070; 87075; 87205; 87389; 88108; 88305; 89051; 93005; 99281; 99285; G0480; J1170; J1644; J2405; J7030; J7050; S0028